=== PATIENT | female | born 1955 | race Caucasian/White ===

== ENCOUNTER 2017-04-27 14:14 | Emergency (ER) | payer BC ==
[2017-04-27 14:30] VITALS: TEMP 98; BMI 19.3
[2017-04-27] MEDS ORDERED: IBUPROFEN 600 MG TABLET (FP) PO ONE (17:08)
[2017-04-27] MEDS: IBUPROFEN 600 MG TABLET (FP) PO ONE ×2 (17:09→19:07)
[2017-04-27] MEDS ORDERED: KETOROLAC TROMETHAMINE 15 MG/ML VIAL ONE (17:13)
[2017-04-27] MEDS ORDERED: ACETAMINOPHEN 325 MG TABLET (FP) ONE (17:13)
[2017-04-27 17:34] LABS: URINE APPEARANCE SLCLOUDY; URINE BILIRUBIN NEGATIVE (NEGATIVE); URINE BLOOD NEGATIVE (NEGATIVE); URINE COLOR YELLOW; URINE GLUCOSE (UA) NEGATIVE (NEGATIVE); URINE KETONE 1+ (NEGATIVE); URINE LEUK ESTERASE NEGATIVE (NEGATIVE); URINE NITRITE NEGATIVE (NEGATIVE); URINE PROTEIN NEGATIVE (NEGATIVE); URINE UROBILINOGEN NEGATIVE E.U./dl (0.2-1.0)
[2017-04-27] MEDS ORDERED: KETOROLAC TROMETHAMINE 15 MG/ML VIAL IM ONE (18:21)
[2017-04-27] MEDS ORDERED: ACETAMINOPHEN 325 MG TABLET (FP) PO ONE (18:22)
--- NOTE | 2017-04-27 18:26 | PDOC ---
History of Present Illness - General History Source: Patient Exam Limitations: No Limitations - History of Present Illness Initial Comments: 04/27/17 18:45 The patient is a 61 year old female, with a significant past medical history of hypertension, hyperlipidemia, and GERD, who presents to the emergency department complaining of left upper back pain since earlier this morning. The patient reports waking up with mild left upper back pain. She states she was able to her chores around the house without any discomfort. However, after she went out to go grocery shopping, she felt her pain had worsened since when she woke up. The patient reports her pain radiates into her left side. She reports difficulty speaking and breathing secondary to back pain. The last time the patient had similar symptoms, she reports her pain was localized to the right side and she was found to have an infection in her right lung. The patient reports a headache and congestion, but denies any fever, chills, cough, or dizziness. She denies any chest pain, diaphoresis, or palpitations. She denies any abdominal pain, nausea, vomiting, diarrhea, or constipation. She denies any dysuria, hematuria, frequency, or urgency. The patient denies any history of DVT 's or PE. She denies any recent travel or sick contacts. Allergies: Vitamin E (d-alpha tocopherol), Shrimp Past Surgical History: Bariatric Surgery Social History: Non smoker. No ETOH or drug use. PCP: Dr. Mancilla <Lyle Naik - Last Filed: 04/27/17 18:45> <Karli Hernandez - Last Filed: 04/27/17 20:12> - General Chief Complaint: Shortness of Breath Stated Complaint: CHEST PAIN Time Seen by Provider: 04/27/17 15:05 Past History <Lyle Naik - Last Filed: 04/27/17 18:45> - Past Medical History Anemia: No Asthma: No Cardiac Disorders: No CVA: No COPD: No CHF: No Dementia: No Diabetes: No GI Disorders: Yes (ULCERS;ESOPHAGEAL MOTILITY DISORDER;GERD;LECHUGA'S ESOP; ULCERATIVE COLITIS) Disorders: No HTN: Yes Hypercholesterolemia: Yes Liver Disease: No Seizures: No Thyroid Disease: No - Surgical History Abdominal Surgery: Yes (GASTRIC BYPASS) Appendectomy: No Cardiac Surgery: No Cholecystectomy: No Neurologic Surgery: No Orthopedic Surgery: No - Psycho/Social/Smoking Cessation Hx Anxiety: No Suicidal Ideation: No Smoking History: Never smoked Hx Alcohol Use: No Drug/Substance Use Hx: No Substance Use Type: None Hx Substance Use Treatment: No <Karli Hernandez - Last Filed: 04/27/17 20:12> - Past Medical History Allergies/Adverse Reactions: Allergies Allergy/AdvReac Type Severity Reaction Status Date / Time vitamin E (d-alpha Allergy Rash Verified 04/27/17 14:27 tocopherol) [vitamin E] SHRIMP Allergy Difficulty Uncoded 04/27/17 14:27 Breathing Home Medications: Ambulatory Orders Calcium Carbonate/Vitamin D3 [Calcium 500 + Vit D Caplet] 1 each PO DAILY Multivitamins [Multivit ([facility] Formul[facility])] 1 tab PO DAILY 05/01/16 Bisacodyl [Dulcolax] 5 mg PO DAILY 05/02/16 Ranitidine HCl 150 mg PO BID #0 tablet 05/02/16 Wheat Dextrin [Benefiber] 1 each PO BID #0 powd.pack 05/02/16 Diazepam [Valium] 2 mg PO TID PRN #10 tablet MDD 3 04/27/17 Review of Systems - Review of Systems Able to Perform ROS?: Yes Comments:: 04/27/17 18:45 GENERAL/CONSTITUTIONAL: Yes: +difficulty speaking secondary to back pain. No fever or chills. No weakness. HEAD, EYES, EARS, NOSE AND THROAT: Yes: +congestion. No change in vision. No ear pain or discharge. No sore throat. CARDIOVASCULAR: Yes: +shortness of breath. No chest pain. RESPIRATORY: No cough, wheezing, or hemoptysis. GASTROINTESTINAL: No nausea, vomiting, diarrhea or constipation. GENITOURINARY: No dysuria, frequency, or change in urination. MUSCULOSKELETAL: Yes: +Left upper back pain radiating to the left side. No joint or muscle swelling or pain. No neck pain. SKIN: No rash NEUROLOGIC: No headache, vertigo, loss of consciousness, or change in strength/ sensation. ENDOCRINE: No increased thirst. No abnormal weight change. HEMATOLOGIC/LYMPHATIC: No anemia, easy bleeding, or history of blood clots. ALLERGIC/IMMUNOLOGIC: No hives or skin allergy. <Lyle Naik - Last Filed: 04/27/17 18:45> *Physical Exam - Vital Signs Last Vital Signs Temp Pulse Resp BP Pulse Ox 98 F 79 20 186/105 98 04/27/17 14:28 04/27/17 14:28 04/27/17 14:28 04/27/17 14:28 04/27/17 14:28 - Physical Exam Comments: 04/27/17 18:46 GENERAL: Awake, alert, and fully oriented, in no acute distress HEAD: No signs of trauma EYES: PERRLA, EOMI, sclera anicteric, conjunctiva clear ENT: Auricles normal inspection, hearing grossly normal, nares patent. Moist mucosa NECK: Normal ROM, supple, no lymphadenopathy, JVD, or masses LUNGS: Breath sounds equal, clear to auscultation bilaterally. No wheezes, and no crackles HEART: Regular rate and rhythm, normal S1 and S2, no murmurs, rubs or gallops ABDOMEN: Soft, nontender, normoactive bowel sounds. No guarding, no rebound. No masses MUSCULOSKELETAL: Left posterior scapular/trapezial tenderness. No midline spinal tenderness. EXTREMITIES: Normal range of motion, no edema. No clubbing or cyanosis. No cords, erythema, or tenderness. DP/PT pulses 2+ and symmetric. NEUROLOGICAL: Moves all extremities. Normal speech, normal gait SKIN: Warm, Dry, normal turgor, no rashes or lesions noted. <GumaroGiconrad - Last Filed: 04/27/17 18:45> - Vital Signs Last Vital Signs Temp Pulse Resp BP Pulse Ox 98 F 79 20 186/105 98 04/27/17 14:28 04/27/17 14:28 04/27/17 14:28 04/27/17 14:28 04/27/17 14:28 <Karli Hernandez - Last Filed: 04/27/17 20:12> ED Treatment Course - ADDITIONAL ORDERS Additional order review: Laboratory Results 04/27/17 17:20 Urine Color Yellow Urine Appearance Slcloudy Urine pH 6.0 Urine Protein Negative Urine Glucose (UA) Negative Urine Ketones 1+ H Urine Blood Negative Urine Nitrite Negative Urine Bilirubin Negative Urine Urobilinogen Negative Ur Leukocyte Esterase Negative - Medications Given in the ED: ED Medications Discontinued Medications Generic Name Dose Route Start Last Admin Trade Name Freq PRN Reason Stop Dose Admin Acetaminophen 650 mg 04/27/17 18:22 04/27/17 18:22 Tylenol - PO 04/27/17 18:23 650 mg ONCE ONE Administration Ibuprofen 600 mg 04/27/17 17:05 04/27/17 17:09 Motrin - PO 04/27/17 17:06 600 mg ONCE ONE Administration Ketorolac Tromethamine 15 mg 04/27/17 18:21 04/27/17 18:22 Toradol Injection - IM 04/27/17 18:22 15 mg ONCE ONE Administration <Lyle Naik - Last Filed: 04/27/17 18:45> - ADDITIONAL ORDERS Additional order review: Laboratory Results 04/27/17 17:20 Urine Color Yellow Urine Appearance Slcloudy Urine pH 6.0 Urine Protein Negative Urine Glucose (UA) Negative Urine Ketones 1+ H Urine Blood Negative Urine Nitrite Negative Urine Bilirubin Negative Urine Urobilinogen Negative Ur Leukocyte Esterase Negative - RADIOLOGY Radiology Studies Ordered: Category Date Time Status CHEST PA & LAT [RAD] Stat Radiology 04/27/17 17:04 Taken SPINE-THORACIC [RAD] Stat Radiology 04/27/17 17:04 Taken - Medications Given in the ED: ED Medications Discontinued Medications Generic Name Dose Route Start Last Admin Trade Name Freq PRN Reason Stop Dose Admin Ibuprofen 600 mg 04/27/17 17:05 04/27/17 17:09 Motrin - PO 04/27/17 17:06 600 mg ONCE ONE Administration <Karli Hernandez - Last Filed: 04/27/17 20:12> Medical Decision Making - Medical Decision Making 04/27/17 18:23 61 yo h/o gastric bypass, HTN HLD GERD here wtih c/o upper scapular pain. pt states she has been having pain since woke up, getting worse.. was initially able to to housework and wash clothes, but then over time pain got worse. pain is worse wtih breathing, movement,. also c/o nasal congestion, and feels she cant breath due to back pain. no leg swelling. no h/o pe or dvt. no cough. no trauma. on exam awake, lungs clear. heart RRRno mr/g. abd soft NT skin warm and dry. no midline spinal tenderness. left posterior scapular ttp. muscle ttp. 5/5 all four ext. differential infection such as pna, muscle strain, plan xray spin, cxr, pain control reassess. ua. <Karli Hernandez - Last Filed: 04/27/17 20:12> *DC/Admit/Observation/Transfer - Attestations Scribe Attestion: 04/27/17 18:46 Documentation prepared by Lyle Naik, acting as medical assistant for Karli Hernandez MD. <Lyle Naik - Last Filed: 04/27/17 18:45> - Discharge Dispostion Admit: No <Karli Hernandez - Last Filed: 04/27/17 20:12> Diagnosis at time of Disposition: Back pain - Discharge Dispostion Disposition: HOME Condition at time of disposition: Improved - Prescriptions Prescriptions: Diazepam [Valium] 2 mg PO TID PRN #10 tablet MDD 3 PRN Reason: Muscle Spasms - Referrals Referrals: Bobby Mancilla MD [Primary Care Provider] - - Patient Instructions Printed Discharge Instructions: DI for Thoracic Back Pain Additional Instructions: no heavy lifting for one week. you should follow up with your primary doctor. call to [facility]. you can take valium 2 mg every 8 hours as needed for muscle spasm. do not drive after taking or mix with alcohol. you can also take tylenol 650 mg every 6 hours as needed for pain. Print Language: TAIWANESE
[2017-04-27 19:59] VITALS: BP 111/56; PULSE 65
--- NOTE | 2017-04-30 10:55 | EKG ---
Test Reason : Blood Pressure : / mmHG Vent. Rate : 065 BPM Atrial Rate : 065 BPM P-R Int : 126 ms QRS Dur : 080 ms QT Int : 394 ms P-R-T Axes : 055 -08 078 degrees QTc Int : 409 ms NORMAL SINUS RHYTHM SEPTAL INFARCT , AGE UNDETERMINED ABNORMAL ECG WHEN COMPARED WITH ECG OF 06-MAY-2007 13:41, T WAVE VARIATION Confirmed by GWEN SHIN MD ([id number]) on 04/30/2017 10:55:11 AM Referred By: Confirmed By:GWEN SHIN MD
== END 2017-04-27 20:26 | disposition home or self-care (01) ==
LOC: JER 14:14
PROC: 3E0233Z Introduction of Anti-inflammatory into Muscle, Percutaneous Approach (ICD-10-PCS; principal; 2017-04-27)
DX: M54.9 Dorsalgia, unspecified (principal); I10 Essential (primary) hypertension; E78.5 Hyperlipidemia, unspecified; K21.9 Gastro-esophageal reflux disease without esophagitis
CPT/HCPCS: 71020-TC; 72070-TC; 81003; 93005; 93010; 99281-25

== ENCOUNTER 2019-04-25 11:40 | Emergency (ER) | payer BC | END 2019-04-25 14:38 | disposition home or self-care (01) | LOC: JER 11:40 ==

== ENCOUNTER 2022-11-05 22:48 | Emergency (ER) | payer BC ==
[2022-11-05 22:51] VITALS: PULSE 65; RESP 18; TEMP 98.8; BMI 22.6
[2022-11-06] MEDS ORDERED: predniSONE 20 MG TABLET (UD) PO ONE (01:31)
[2022-11-06] MEDS ORDERED: valACYclovir HCL 1000 MG TABLET PO ONE (01:44)
[2022-11-06] MEDS ORDERED: valACYclovir HCL 500 MG TABLET (FP) ONE (01:45)
[2022-11-06] MEDS ORDERED: predniSONE 20 MG TABLET (UD) ONE (01:45)
[2022-11-06 01:55] VITALS: BP 172/86
== END 2022-11-06 02:05 | disposition home or self-care (01) ==
LOC: FER 22:48
DX: G51.0 Bell's palsy (principal)
CPT/HCPCS: 70450-TC; 99285-25